=== PATIENT | male | born 2000 | race Caucasian/White ===

== ENCOUNTER 2023-03-09 04:53 | Emergency (ER) | payer MEDICAID, SELFPAY ==
[2023-03-09 04:58] VITALS: BP 130/85; PULSE 70; RESP 16; TEMP 36.4; O2SAT 100; BMI 22.8
--- NOTE | 2023-03-09 05:11 | ED.PSYCH ---
HPI - Psych General Chief Complaint: General Medical Stated Complaint: crisis Time Seen by Provider: 03/09/23 05:08 Source: patient Mode of arrival: EMS Limitations: no limitations History of Present Illness HPI Narrative: Patient comes to emergency room via EMS requesting to talk to crisis. Patient states that he called an ambulance hoping that they would bring him to [place] do talk to CRISis regarding previous admissions. Patient is not suicidal or homicidal. Review of Systems Review of Systems: Constitutional : No Weight loss, No Fever, No Chills, No Night Sweats, No Fatigue, No Malaise ENT/Mouth : No Hearing loss, No Ear Pain, No Nasal Congestion, No Sinus Pain, No Hoarseness, No sore throat, No Rhinorrhea, No Swallowing Difficulty Eyes: No Eye Pain, No Swelling, No Redness, No Foreign Body, No Discharge, No Vision Changes Cardiovascular : No Chest Pain, No SOB, No Dyspnea on Exertion, No Orthopnea, No Edema, No Palpitations Respiratory : No Cough, No Sputum, No Wheezing, No Smoke Exposure, No Dyspnea Gastrointestinal : No Nausea, No Vomiting, No Diarrhea, No Constipation, No abdominal Pain, No Hematochezia, No Melena Genitourinary : no irregular bleeding, No Dysuria, No Urinary Frequency, No Hematuria, No Urinary Incontinence, No Urgency, No Flank Pain, No Urinary Flow Changes, No Hesitancy Musculoskeletal : No joint pain, No Myalgias, No Joint Swelling Skin : No Skin Lesions, No rash Neuro : No Weakness, No Numbness, No Paresthesias, No Loss of Consciousness, No Dizziness, No Headache Psych : No Anxiety/Panic, No Depression, No SI/HI/AH/VH, No Social Issues, Heme/Lymph: No Bruising, No Bleeding,No Lymphadenopathy Endocrine : No Polyuria, No Polydipsia, No Temperature Intolerance Physical Exam Vital Signs: Vital Signs: Last Vital Signs Temp 97.6 F 03/09/23 04:58 Pulse 70 03/09/23 04:58 Resp 16 03/09/23 04:58 BP 130/85 03/09/23 04:58 Pulse Ox 100 03/09/23 04:58 O2 Del Method Room Air 03/09/23 04:58 BMI result Body Mass Index 22.8 Const: Other: Appearance: Alert. Oriented X3. No acute distress. Eyes: Pupils equal, round and reactive to light. ENT: Pharynx normal. Neck: Normal inspection. Neck supple. No lymph nodes noted. No crepitus CVS: Normal heart rate and rhythm. Pulses normal. Normal S1 and S2 Respiratory: No respiratory distress. Breath sounds normal. No Wheezing. No rales Abdomen: Soft and nontender. No rigidity. No distention. Skin: Skin warm and dry. Normal skin color. Normal skin turgor. Extremities: No lower extremity edema. No Lacerations. No Rash Neuro: Oriented X 3. No motor deficit. No sensory deficit. Moving all extremities. No slurred speech. CN 2 through 12 grossly intact Psych: calm, cooperative, normal affect Medical Decision Making Medical Decision Making MDM Narrative: -patient states that he thought that the ambulance would take him to [facility] and he was to have a conversation with the crisis team. Patient states that he was not expecting to come to [place] or to go to the [facility]. -patient states that he is not suicidal or homicidal, patient states that he refuses all care and requesting to be discharged -patient is not SI HI, coherent, patient will be discharged per his request Differential Diagnosis Differential Diagnoses: The differential diagnosis associated with the presentation includes Discharge Plan Discharge Clinical Impression: Normal exam Patient Disposition: Home, Self-Care Additional Instructions: Please follow-up with your primary care physician tomorrow. If you have any worsening or new symptoms, please return to the emergency room or call 911
== END 2023-03-09 05:23 | disposition home or self-care (01) ==
PROVIDERS: Emergency Provider Emergency Medicine
DX: Z03.89 Encounter for observation for other suspected diseases and conditions ruled out (principal)
CPT/HCPCS: 99282

== ENCOUNTER 2023-03-09 05:23 | Emergency (ER) | payer MEDICAID, SELFPAY ==
[2023-03-09 05:50] VITALS: BP 113/69; PULSE 51; RESP 18; TEMP 36.4; O2SAT 98; BMI 22.5
--- NOTE | 2023-03-09 08:09 | ED_ITS ---
HPI - General Adult General Chief complaint: General Medical Stated complaint: homeless, unable to eat or sleep Time Seen by Provider: 03/09/23 07:18 Source: patient Mode of arrival: ambulatory Limitations: no limitations History of Present Illness HPI narrative: 22 yo male just seen for SI (cleared by CARE team) but needed long-term after he got stuck here trying to get to [facility] from a bus didn't have enough money wants to get back to [place]. He has no complaints other than he is hungry and tired. He has been homeless since November and it's getting cold out. He has no SI. MD complaint: asking for help with long-term Onset (ago): day(s) (2) Severity: moderate Relieving factors: none Exacerbating factors: none Associated symptoms: denies other symptoms Treatments prior to arrival: none Related Data Allergies Allergy/AdvReac Type Severity Reaction Status Date / Time diphenhydramine Allergy Unknown Verified 03/09/23 05:50 [From Yamileth] seafood Allergy Unknown Verified 03/09/23 05:50 Review of Systems Review of Systems: Constitutional : No Fever, No Chills, No Fatigue ENT/Mouth : No sore throat, No Rhinorrhea Eyes: No Eye Pain, No Swelling, No Redness Cardiovascular : No Chest Pain, No SOB, No Dyspnea on Exertion Respiratory : No Cough, No Sputum Gastrointestinal : No Nausea, No Vomiting, No Diarrhea, No abdominal Pain Genitourinary : No Dysuria, No Urinary Frequency, No Hematuria, Musculoskeletal : No joint pain, No Myalgias, No Joint Swelling Skin : No Skin Lesions, No rash Neuro : No Weakness, No Numbness, No Dizziness, positive Headache Psych : No Anxiety/Panic, No Depression, no SI/HI All other systems reviewed and are negative [facility] Past Medical History Attestation statement: The following information was validated with the patient. Medical History No pertinent past medical history Social History Social History Alcohol intake: current Smoked in Last 30 Days: No Use of substances other than those prescribed or required for medical reasons: No Advance Directives: No Advance Directives Information Provided: Yes Physical Exam ED Vital Signs: Vital Signs - 24 hr 03/09/23 05:50 Temperature 97.6 F Pulse Rate 51 Respiratory Rate 18 Blood Pressure 113/69 Pulse Oximetry 98 Oxygen Delivery Method Room Air BMI result Body Mass Index 22.5 Appearance: Alert. Oriented X3. No acute distress. Eyes: Pupils equal, round and reactive to light. ENT: Pharynx normal. Neck: Normal inspection. Neck supple. CVS: Normal heart rate and rhythm. Pulses normal. Respiratory: No respiratory distress. Breath sounds normal. Abdomen: Soft and non-tender. Skin: Skin warm and dry. Normal skin color. Normal skin turgor. Extremities: No lower extremity edema. Neuro: Oriented X 3. No motor deficit. No sensory deficit. Medical Decision Making Medical Decision Making MDM Narrative: 22 yo male with no PMH here with c/o needing help to get back to [place] he has no medical complaints he is hungry and is polite and just wants to get back to his long-term in [place]. He denies medical issues, substance abuse, SI. We will feed him and lyft him to [place] Differential Diagnosis Differential Diagnoses: The differential diagnosis associated with the presentation includes long-term seeking, poor social situation Admission/Observation Consideration of admission/observation: Escalation of care including admission/observation considered was already seen and observed Lab Data [facility] Lab Attestation statement: I reviewed the patient's lab results. Discharge Plan Discharge Clinical Impression: Poor social situation Patient Disposition: Home, Self-Care Instructions: Normal Exam (ED) Additional Instructions: return for fevers, vomiting, chest pain, difficulty breathing.
[2023-03-09 08:23] LABS: IDNOW Serial# BCCEAD1C; Influenza A Negative (Negative); Influenza B2 Negative (Negative)
== END 2023-03-09 09:32 | disposition home or self-care (01) ==
PROVIDERS: Emergency Provider Emergency Medicine
DX: Z72.89 Other problems related to lifestyle (principal); Z59.48 Other specified lack of adequate food; Z59.02 Unsheltered homelessness; Z20.828 Contact with and (suspected) exposure to other viral communicable diseases
CPT/HCPCS: 87502; 99283

== ENCOUNTER 2023-07-11 23:50 | Emergency (ER) | payer MEDICAID, SELFPAY ==
[2023-07-11 23:55] VITALS: BP 111/64; PULSE 73; RESP 18; TEMP 36.1; O2SAT 98; BMI 22.5
--- NOTE | 2023-07-12 | ECG_ITS ---
Test Reason : chest pain Blood Pressure : / mmHG Vent. Rate : 070 BPM Atrial Rate : 070 BPM P-R Int : 158 ms QRS Dur : 088 ms QT Int : 366 ms P-R-T Axes : 045 048 030 degrees QTc Int : 395 ms Normal sinus rhythm with sinus arrhythmia Normal ECG No previous ECGs available Referred By: Generic ED Physician Electronically Signed By:Matthew Joseph
[2023-07-12 00:22] LABS: MANUAL DIFF FLAG NO
[2023-07-12 00:23] LABS: Basophils Absolute Auto 0.1 X10*3/uL (0.0-0.2); Basophils Percent Auto 0.6 % (0-2); Eosinophils Absolute Auto 0.3 X10*3/uL (0.0-0.4); Hematocrit 39.8 % (42.0-52.0); Hemoglobin 14.2 g/dl (14.0-18.0); Imm Gran Abs Auto 0.02 X10*3/uL (0.00-0.03); Imm Gran Pct Auto 0.2 % (0.0-0.4); Lymphocytes Absolute Auto 1.5 X10*3/uL (1.2-4.9); Lymphocytes Percent Auto 17.9 % (20-40); Mean Corpuscular HGB Conc 35.7 g/dl (31.0-36.0); Mean Corpuscular Hemoglobin 28.9 pg (27.0-33.0); Mean Corpuscular Volume 81.1 fL (80.0-98.0); Mean Platelet Volume 9.1 fL (9.4-12.4); Monocytes Absolute Auto 0.9 X10*3/uL (0.1-1.2); Neutrophils Absolute Auto 5.7 x10*3/uL (2.0-8.3); Neutrophils Percent Auto 67.3 % (45-73); Platelet Count 257 X10*3/uL (160-400); Red Blood Count 4.91 X10*6/uL (4.60-5.80); Red Cell Distribution Width 12.5 % (11.0-16.0); White Blood Count 8.5 X10*3/uL (4.8-10.8)
[2023-07-12 00:40] LABS: Alanine Aminotransferase 20 U/L (0-40); Albumin Level 4.3 g/dL (3.5-5.0); Alkaline Phosphatase 53 U/L (39-117); Anion Gap 13 (12-20); Aspartate Amino Transferase 18 U/L (5-37); Bilirubin Total 1.7 mg/dL (0.0-1.0); Blood Urea Nitrogen 19 mg/dL (9-16); Calcium 9.9 mg/dL (8.4-10.2); Carbon Dioxide 23 mmol/L (22-29); Chloride 105 mmol/L (96-108); Creatinine Clr Calc Pharmacy 114.7; Estimated Glomerular Filt Rate > 60; Ethanol < 10 mg/dL; Glucose Random 94 mg/dL (60-115); Potassium 3.6 mmol/L (3.3-5.1); Sodium 137 mmol/L (135-145); Total Protein 7.5 g/dL (6.5-8.0)
[2023-07-12 00:41] LABS: Acetaminophen LAB 5 mcg/mL (<30); Salicylate < 5.0 mg/dL (15-30)
--- NOTE | 2023-07-12 00:46 | PC.NURSE ---
pt refusing to [employer] administrator, refusing labs and ekg. pt denies harm to self or others. pt is alert and oriented x4 steady gait. pt states he will leave.
== END 2023-07-12 00:51 | disposition left against medical advice (07) ==
PROVIDERS: Emergency Provider Emergency Medicine
DX: R07.89 Other chest pain (principal); I49.8 Other specified cardiac arrhythmias; Z79.899 Other long term (current) drug therapy
CPT/HCPCS: 36415; 80053; 80143; 80179; 80307; 85025; 93005; 99283

== ENCOUNTER → 2023-07-12 00:09 | Outpatient (BNV) | payer MEDICAID, SELFPAY | PROVIDERS: Emergency Provider Emergency Medicine; Visit Provider Internal Medicine Cardiovascular Disease | DX: R07.9 Chest pain, unspecified (principal) | CPT/HCPCS: 93010 ==

== ENCOUNTER 2024-01-12 03:40 | Emergency (ER) | payer MEDICAID, SELFPAY ==
[2024-01-12 03:52] VITALS: BP 112/80; BP 99/67; PULSE 64; PULSE 66; RESP 16; TEMP 36.4; O2SAT 96; BMI 20.3
--- NOTE | 2024-01-12 04:48 | PC.NURSE ---
pt [place] [employer], a&ox4, respirations even and unlabored. pt reporting x2 hours of abdominal pain, denies n/v/d. pt denies sick contacts at this time.
--- NOTE | 2024-01-12 05:34 | PC.NURSE ---
pt resting n stretcher, eyes closed, no acute distress noted, respirations even and unlabored.
--- NOTE | 2024-01-12 05:56 | PC.NURSE ---
pt refusing vitals and lab work at this time, aware.
--- NOTE | 2024-01-12 05:59 | MHC.EDTECH ---
Pt refusing labs, vitals. RN aware
--- NOTE | 2024-01-12 06:00 | ED_ITS ---
HPI - Abdominal Pain General Chief Complaint: Abdominal Pain Stated Complaint: Abd pain and dizziness Time Seen by Provider: 01/12/24 05:59 Source: patient Mode of arrival: EMS Limitations: no limitations History of Present Illness ED Provider: denis LEIVA narrative: Patient lives about 30 minutes away from here missed his bus last night comes here by ambulance for upper abdominal pain no nausea no vomiting no diarrhea had no bowel movements earlier no history of gastritis patient is requesting for food Related Data Allergies Allergy/AdvReac Type Severity Reaction Status Date / Time diphenhydramine Allergy Unknown Verified 01/12/24 03:53 [From Benadryl] seafood Allergy Unknown Verified 01/12/24 03:53 Review of Systems Review of Systems Yes all other systems are reviewed and are negative [facility] Past Medical History Medical History No pertinent past medical history Social History Social History Alcohol intake: current Smoked in Last 30 Days: No Use of substances other than those prescribed or required for medical reasons: No Advance Directives: No Advance Directives Information Provided: No Do you have a plan to hurt others: No Plan Physical Exam ED Vital Signs: Vital Signs - 24 hr 01/12/24 03:52 Temperature 97.6 F Pulse Rate 64 Respiratory Rate 16 Blood Pressure 99/67 Pulse Oximetry 96 Oxygen Delivery Method Room Air BMI result Body Mass Index 20.3 Appearance: Alert. Oriented X3. No acute distress. Eyes: No pallor or icterus ENT: Pharynx normal. Oral Mucosa moist Neck: Normal inspection. Neck supple. CVS: Normal heart rate and rhythm. Pulses normal. Respiratory: No respiratory distress. Equal air entry bilateral, Abdomen: Soft and mild epigastric tenderness Bowel sounds are present, no mass palpable, no CVA tenderness Skin: Skin warm and dry. Normal skin color. Normal skin turgor. Extremities: No lower extremity edema. No calf tenderness Neuro: Oriented X 3. Medical Decision Making Medical Decision Making [facility] Narrative: Patient nonspecific upper abdominal pain with no vomiting no nausea no diarrhea refusing any labs having food in the ER likely pain is subjective from empty stomach will discharge patient home Discharge Plan Discharge Clinical Impression: Abdominal pain Patient Disposition: Home, Self-Care Instructions: Abdominal Pain (ED) Additional Instructions: Likely you have hunger pain Drink plenty of fluids Print Language: Frisian
[2024-01-12 06:24] VITALS: BP 99/67; PULSE 64; RESP 16; TEMP 36.4; O2SAT 96
== END 2024-01-12 06:25 | disposition home or self-care (01) ==
PROVIDERS: Emergency Provider Internal Medicine
DX: R10.10 Upper abdominal pain, unspecified (principal)
CPT/HCPCS: 99283; 99284